=== PATIENT | female | born 1970 | race Caucasian/White ===

== ENCOUNTER 2017-07-21 20:56 | Emergency (ER) | payer OTHER ==
[~2017-07-21] VITALS: Ht 162.6 cm; Wt 66.5 kg
[~2017-07-21 20:56] MED LIST: LEVO1TAB6 PO; TERB250T10 PO; [UNRECOGNIZED DRUG - REMARK]
[2017-07-21 21:15] VITALS: BP 120/78
[2017-07-21] MEDS ORDERED: LIDOCAINE 1%, 20ML ONE (21:45)
[2017-07-21] MEDS ORDERED: BUPIVACAINE 0.25% ONE (21:46)
[2017-07-21] MEDS ORDERED: DIPH,PERTUSS(ACELL),TET VAC/PF 0.5 ML IM-VACC ONE ×2 (23:00→23:44)
[2017-07-21] MEDS ORDERED: LIDOCAINE 1%, 20ML SQ ONE (23:00)
[2017-07-21] MEDS ORDERED: HYDROcodone/APAP 5/325 TABLET PO STA (23:46)
[2017-07-21] MEDS ORDERED: BACITRACIN ZINC OINT 500U/GM, 0.9 GM ONE (23:49)
[2017-07-21] MEDS ORDERED: HYDROcodone/APAP 5/325 TABLET ONE (23:50)
[2017-07-21] MEDS ORDERED: ONDANSETRON ODT 4 MG ONE (23:50)
[2017-07-22] MEDS ORDERED: ONDANSETRON ODT 4 MG PO ONE
== END 2017-07-22 00:15 | disposition home or self-care (01) ==
LOC: ED 23:59
DX: S61.210A Laceration without foreign body of right index finger without damage to nail, initial encounter (principal); S61.216A Laceration without foreign body of right little finger without damage to nail, initial encounter; S61.212A Laceration without foreign body of right middle finger without damage to nail, initial encounter; S61.214A Laceration without foreign body of right ring finger without damage to nail, initial encounter; W45.8XXA Other foreign body or object entering through skin, initial encounter; Y93.89 Activity, other specified; Y92.098 Other place in other non-institutional residence as the place of occurrence of the external cause; Y99.8 Other external cause status
CPT/HCPCS: 12002; 73130; 90471; 90715; 99284; Q0162; 12004

== ENCOUNTER 2018-09-13 07:58 | Outpatient (CLI) | payer OTHER ==
[~2018-09-13 07:58] MED LIST changes: -TERB250T10 PO; +TERB250T14 PO
== END 2018-09-13 23:59 | disposition home or self-care (01) ==
LOC: CFH 07:58
PROVIDERS: ATTEND Family Medicine
DX: Z12.31 Encounter for screening mammogram for malignant neoplasm of breast (principal)
CPT/HCPCS: 77063; 77067